=== PATIENT | female | born 2000 ===

== ENCOUNTER → 2023-01-17 | Outpatient (CLI) | payer OTHER ==
--- NOTE | 2023-01-17 09:12 | MR ---
EXAMINATION TYPE: MR brain wo con DATE OF EXAM: 01/17/2023 8:32 AM COMPARISON: None. CLINICAL INDICATION:Female, 22 years old with history of R51.9 HEADACHE; HEADACHES [id number], GETTING WOR SE WITH RANDOM HEAD PAINS IN DIFFERENT AREAS LASTING 30SEC TO 2 MIN TECHNIQUE: Multi planar, multi sequence imaging was performed through the brain including: T1, T2, In version recovery, Diffusion weighted imaging, and gradient echo imaging. No gadolinium was given. FINDINGS: The quijano-white junctions, ventricular system, and cisterns appear unremarkable. Midline structures sh ow no abnormality. Diffusion-weighted imaging shows no evidence of restricted diffusion. The suscepti bility weighted images do not reveal any evidence for micro-hemorrhage. The bone marrow signal is within normal limits. Paranasal sinuses and mastoid air cells: Near complete desiccation of the right maxillary sinus. Visualized orbits: Orbital contents are intact. IMPRESSION: 1. No evidence of intracranial mass or acute/subacute infarct. 2. Near complete opacification of the right maxillary sinus.
== END | disposition home or self-care (01) ==
LOC: RADMRIMAIN 07:53
PROVIDERS: ATTEND Family Medicine
DX: J34.89 Other specified disorders of nose and nasal sinuses (principal); R51.9 Headache, unspecified
CPT/HCPCS: 70551